=== PATIENT | male | born 1970 | race Caucasian/White ===

== ENCOUNTER 2016-07-04 00:39 | Inpatient (IN) | payer BC, OTHER ==
[~2016-07-04] VITALS: Ht 177.8 cm; Wt 105.7 kg
[2016-07-04] MEDS ORDERED: ONDANSETRON PF 4 MG/2 ML VIAL. ONE (01:07)
--- NOTE | 2016-07-04 01:21 | ED.ADGEN ---
Past Medical History Past Medical History: Diabetes-Type II, High Cholesterol, Hypertension Past Surgical History: Other Additional Past Surgical Histo: R. SHOULDER Alcohol Use: Occasionally Drug Use: None Adult General Chief Complaint Chief Complaint: DIZZY/LIGHT HEADED HPI HPI Patient is a 45 year old man, with history of hypertension, type 2 diabetes mellitus, who presents to the emergency department with complaint of dizziness, nausea, vomiting. Patient states that he awoke several hours ago, and when going to the bathroom felt lightheaded, felt hot, and sweaty, denies any focal weakness numbness or tingling, any vision changes, states he was having a headache "all over my head", no neck pain, denies any injuries, describes it as a lightheadedness more so than a vertiginous type feeling, although he is having difficulty clarifying, no syncope, patient then developed nausea and vomiting, denies any chest pain, states that he had some shortness of breath with this episode as well, and feels as though he "can't catch my breath". No similar symptoms previously. Patient states he has been compliant with his medications. Patient noted to be vomiting in the ED, food and fluid, no bile, no blood in emesis, denies any diarrhea. No fevers or chills, denies any sick contacts or exposures. No recent travel or surgery. Patient has not previously had an abdominal surgery. Patient denies any drugs or alcohol, admits to cigarette use daily. Review of Systems Review of Systems Constitutional: Denies fever or chills. [] Eyes: Denies change in visual acuity. [] HENT: Denies nasal congestion or sore throat. [] Respiratory: Denies cough, shortness of breath associated with diaphoresis, hot flushed feeling, nausea and vomiting, headache. Cardiovascular: Denies chest pain or edema. [] GI: Mild abdominal pain, nausea, vomiting, no bloody stools or diarrhea. : Denies dysuria. [] Musculoskeletal: Denies back pain or joint pain. [] Integument: Denies rash. [] Neurologic: Denies focal weakness or sensory changes. [] All over headache, lightheadedness, no vertiginous type symptoms. Endocrine: Denies polyuria or polydipsia. [] Lymphatic: Denies swollen glands. [] Psychiatric: Denies depression or anxiety. [] Current Medications Current Medications Current Medications Medications (Trade) Dose Ordered Sig/Alondra Start Time Stop Time Status Last Admin Dose Admin Ondansetron HCl (Zofran) 4 mg STK-MED ONCE 07/04/16 01:07 07/04/16 01:08 DC Ondansetron HCl 4 mg 4 mg 1X ONCE 07/04/16 01:30 07/04/16 01:31 DC 07/04/16 01:30 4 MG Sodium Chloride (Iv Sodium Chloride 0.9% 1000ml Bag) 1,000 ml @ 1,000 mls/hr 1X ONCE 07/04/16 01:30 07/04/16 02:29 DC 07/04/16 01:30 1,000 MLS/HR Allergies Allergies Allergies Coded Allergies Type Severity Reaction Last Updated Verified No Known Drug Allergies 07/04/16 No Physical Exam Physical Exam Constitutional: Well developed, well nourished, patient is mildly diaphoretic, noted to have just finished vomiting in the ED. [] HENT: Normocephalic, atraumatic, bilateral external ears normal, oropharynx moist, no oral exudates, nose normal. [] Eyes: PERRLA, EOMI, conjunctiva normal, no discharge. [] Neck: Normal range of motion, no tenderness, supple, no stridor. [] Cardiovascular:Heart rate regular rhythm, no murmur, S1, S2, rubs or gallops. [] Lungs & Thorax: Bilateral breath sounds clear to auscultation, no wheezing, rhonchi, rales. No chest wall tenderness or crepitus. [] Abdomen: Bowel sounds normal, soft, mild tenderness all patient in the epigastric and right upper quadrant region, no rebound, rigidity,, no masses, no pulsatile masses. [] Skin: Warm, dry, no erythema, no rash. [] Back: No tenderness, no CVA tenderness. [] Extremities: No tenderness, no cyanosis, no clubbing, ROM intact, no edema. [ Negative Homans sign.] Neurologic: Alert and oriented X 3, normal motor function, normal sensory function, no focal deficits noted. [] Psychologic: Affect normal, judgement normal, mood normal. [] Current Patient Data Vital Signs Vital Signs Date Time Temp Pulse Resp B/P Pulse Ox O2 Delivery O2 Flow Rate FiO2 07/04/16 01:00 97.4 82 20 157/98 98 Room Air 97.4 Lab Values Laboratory Tests Test 07/04/16 00:54 07/04/16 01:20 White Blood Count 6.0x10^3/uL (4.0-11.0) Red Blood Count 4.97x10^6/uL (4.30-5.70) Hemoglobin 14.4g/dL (13.0-17.5) Hematocrit 41.9% (39.0-53.0) Mean Corpuscular Volume 84fL (79-100) Mean Corpuscular Hemoglobin 29pg (25-35) Mean Corpuscular Hemoglobin Concent 35g/dL (31-37) Red Cell Distribution Width 13.3% (11.5-14.5) Platelet Count 306x10^3/uL (140-400) Neutrophils (%) (Auto) 52% (31-73) Lymphocytes (%) (Auto) 35% (24-48) Monocytes (%) (Auto) 11% (0-9) H Eosinophils (%) (Auto) 1% (0-3) Basophils (%) (Auto) 1% (0-3) Neutrophils # (Auto) 3.1x10^3uL (1.8-7.7) Lymphocytes # (Auto) 2.1x10^3/uL (1.0-4.8) Monocytes # (Auto) 0.7x10^3/uL (0.0-1.1) Eosinophils # (Auto) 0.1x10^3/uL (0.0-0.7) Basophils # (Auto) 0.0x10^3/uL (0.0-0.2) Prothrombin Time 12.1SEC (11.7-14.0) Prothrombin Time INR 1.0 (0.8-1.1) PTT 24SEC (24-38) Sodium Level 137mmol/L (136-145) Potassium Level 4.1mmol/L (3.5-5.1) Chloride Level 100mmol/L (98-107) Carbon Dioxide Level 26mmol/L (21-32) Anion Gap 11 (6-14) Blood Urea Nitrogen 12mg/dL (8-26) Creatinine 0.7mg/dL (0.7-1.3) Estimated GFR (Cockcroft-Gault) 122.0 BUN/Creatinine Ratio 17 (6-20) Glucose Level 356mg/dL (70-99) H Calcium Level 9.7mg/dL (8.5-10.1) Total Bilirubin 0.3mg/dL (0.2-1.0) Aspartate Amino Transferase (AST) 17U/L (15-37) Alanine Aminotransferase (ALT) 38U/L (16-63) Alkaline Phosphatase 138U/L (46-116) H Troponin I Quantitative < 0.017ng/mL (0.000-0.055) EW-Zju-I-Type Natriuretic Peptide 10pg/mL (0-124) Total Protein 7.3g/dL (6.4-8.2) Albumin 3.8g/dL (3.4-5.0) Albumin/Globulin Ratio 1.1 (1.0-1.7) Lipase 184U/L (73-393) Urine Collection Type Unknown Urine Color Yellow Urine Clarity Clear Urine pH 8.0 Urine Specific Jewell 1.025 Urine Protein Negativemg/dL (NEG-TRACE) Urine Glucose (UA) >=1000mg/dL (NEG) Urine Ketones (Stick) Negativemg/dL (NEG) Urine Blood Negative (NEG) Urine Nitrite Negative (NEG) Urine Bilirubin Negative (NEG) Urine Urobilinogen Dipstick 0.2mg/dL (0.2 mg/dL) Urine Leukocyte Esterase Negative (NEG) Urine RBC Occ/HPF (0-2) Urine WBC Occ/HPF (0-4) Urine Squamous Epithelial Cells Occ/LPF Urine Bacteria 0/HPF (0-FEW) Urine Opiates Screen Neg (NEG) Urine Methadone Screen Neg (NEG) Urine Barbiturates Neg (NEG) Urine Phencyclidine Screen Neg (NEG) Urine Amphetamine/Methamphetamine Neg (NEG) Urine Benzodiazepines Screen Neg (NEG) Urine Cocaine Screen Neg (NEG) Urine Cannabinoids Screen Neg (NEG) Urine Ethyl Alcohol Neg (NEG) Laboratory Tests 07/04/16 00:54 Laboratory Tests 07/04/16 00:54 EKG EKG EC: Sinus rhythm, heart rate 80 bpm, upright axis, QTC of 428, MS 1:30, QRS of 88, incomplete right bundle branch block noted, abnormal ECG, does not meet STEMI criteria. As interpreted by me. EC: Sinus rhythm, heart rate 75 beats minute, upright axis, QTC of 463, MS 136, QRS of 100, incomplete right bundle-branch block noted, no other abnormalities identified, with compared to previous ECG, no significant changes identified. Radiology/Procedures Radiology/Procedures [] [id number] [place] [address] IMAGING REPORT Signed PATIENT: ALEX SOTO ACCOUNT: [id number] : 1970 LOCATION: ER AGE: 45 SEX: M EXAM STATUS: REG ER ORD. PHYSICIAN: LUZ MARSHALL DO REASON: Dizziness/N/V PROCEDURE: HEAD WO CONTRAST Examination: CT head without contrast. HISTORY History of dizziness. COMPARISON None available Exposure: One or more of the following dose reduction technique were utilized for this examination: 1. Automated exposure control. 2.Adjustment of MA and /or KV according to patient size. 3. Use of iterative reconstruction technique. FINDINGS There is no evidence of midline shift. There is no acute intracranial bleed or extra-axial fluid collection identified. The akhtar-white matter differentiation is maintained. The visualized lateral ventricles, 3rd ventricle, 4th ventricle appropriate for age. The basal cisterns are not effaced. The mastoid air cells are clear. There is mild mucosal thickening identified in the bilateral maxillary sinus and the ethmoidal sinus likely due to sinus disease. IMPRESSION No acute intracranial findings. Electronically signed by: Barry Fonseca (Jul 04, 2016 02:01:23) DICTATED and SIGNED BY: BARRY FONSECA MD DATE: 07/04/16200 CC: UMESH JANSEN MD; LUZ MARSHALL DO ~ Impressions: [id number] [place] [address] IMAGING REPORT Signed PATIENT: ALEX SOTO ACCOUNT: [id number] : 1970 LOCATION: ER AGE: 45 SEX: M EXAM STATUS: REG ER ORD. PHYSICIAN: LUZ MARSHALL DO REASON: RUQ pain/N/V PROCEDURE: ABDOMEN LTD Examination: Ultrasound abdomen limited. HISTORY History of right upper quadrant pain, nausea, vomiting COMPARISON None FINDINGS The pancreas is not well visualized due to bowel gas. There is increased echogenicity noted within of the liver likely hepatic steatosis. Hepatomegaly identified with the right lobe of the liver measuring 24.0 centimeters. There is a 2.3 millimeter echogenicity identified abutting the wall of the gallbladder likely a polyp. The gallbladder wall thickness measures 1.5 millimeters. The common bile duct measures 3.4 millimeters in transverse dimension. The right kidney measures 14.3 centimeters in length. IMPRESSION 1. Small nonmobile echogenicity identified in the gallbladder measuring 2.3 millimeter probably a polyp. 2. Hepatomegaly with increased echogenicity noted throughout the liver likely hepatic steatosis. Electronically signed by: Barry Fonseca (Jul 04, 2016 02:25:00) DICTATED and SIGNED BY: BARRY FONSECA MD DATE: 07/04/16223 CC: UMESH JANSEN MD; LUZ MARSHALL DO ~ Course & Med Decision Making Course & Med Decision Making Pertinent Labs and Imaging studies reviewed. (See chart for details) Patient's neurologic examination is nonfocal, although patient is complaining of significant dizziness, nystagmus, it does appear the symptoms are more lightheaded nature than truly vertiginous, but are associated with nausea and vomiting. Due to patient's complaints, history of poorly controlled diabetes and hypertension, CT of the head obtained to rule out any occult cause of his symptoms, CT of the head is unremarkable. Patient with epigastric and right upper quadrant abdominal pain as well, ultrasound of the required obtained, not reveal any evidence of acute cholecystitis, mild elevation of AST noted, patient also noted be hyperglycemic, without any evidence of acidosis. On reevaluation after receiving Valium, patient is still complaining of significant dizziness, nausea is improved, has had no further vomiting at this point, but feels very dizzy every time he attempts to move. Again no focal findings were identified. I did discuss findings as above with Dr. Jansen, the patient's primary care provider, states the patient is a poorly compliant diabetic, patient accepted to his service as a full admission to the medical telemetry floor, bridge orders placed at his request for continued symptom management, insulin administration via protocol, and consultation with neurology. Patient was agreeable to this plan as well, patient admitted to the floor in sinus rhythm without, location. Sanjuanita Disclaimer Dragon Disclaimer This electronic medical record was generated, in whole or in part, using a voice recognition dictation system. Departure Impression: Primary Impression: Dizziness Additional Impressions: Nausea and vomiting Hyperglycemia due to type 2 diabetes mellitus Disposition: ADMITTED INPATIENT Admitting Physician: Umesh Jansen Condition: IMPROVED Problem Qualifiers Additional Impressions: Nausea and vomiting Vomiting type: unspecified Vomiting Intractability: non-intractable Qualified Code: R11.2 - Nausea with vomiting, unspecified Hyperglycemia due to type 2 diabetes mellitus Diabetes mellitus detention insulin use: unspecified detention insulin use status Qualified Code: E11.65 - Type 2 diabetes mellitus with hyperglycemia LUZ MARSHALL DO Jul 04, 2016 01:20
[2016-07-04 01:23] LABS: BASO % 1 % (0-3); EOS % 1 % (0-3); HEMATOCRIT 41.9 % (39.0-53.0); HEMOGLOBIN 14.4 g/dL (13.0-17.5); LYMPH # 2.1 x10^3/uL (1.0-4.8); LYMPH % 35 % (24-48); MEAN CORPUSCULAR HEMOGLOBIN 29 pg (25-35); MEAN CORPUSCULAR HGB CONC 35 g/dL (31-37); MEAN CORPUSCULAR VOLUME 84 fL (79-100); MONO % 11 % (0-9); NEUT % 52 % (31-73); PLATELET COUNT 306 x10^3/uL (140-400); RED BLOOD COUNT 4.97 x10^6/uL (4.30-5.70); RED CELL DISTRIBUTION WIDTH 13.3 % (11.5-14.5)
[2016-07-04 01:27] LABS: BILIRUBIN,URINE NEGATIVE (NEG); GLUCOSE,URINE >=1000 mg/dL (NEG); NITRITE,URINE NEGATIVE (NEG); PROTEIN,URINE NEGATIVE (NEG-TRACE); UROBILINOGEN,URINE 0.2 mg/dL (0.2 mg/dL)
[2016-07-04] MEDS ORDERED: IV NORMAL SALINE 1000ML BAG 1,000 ML IV ONE (01:30)
[2016-07-04] MEDS ORDERED: ONDANSETRON PF 4 MG/2 ML VIAL. IV ONE ×2 (01:30→03:45)
[2016-07-04 01:32] LABS: BARBITURATES NEG (NEG); BENZODIAZEPINES NEG (NEG); CANNABINOIDS NEG (NEG); COCAINE NEG (NEG); METHADONE NEG (NEG); OPIATES NEG (NEG); PHENCYCLIDINE NEG (NEG)
[2016-07-04 01:34] LABS: ETHANOL, URINE NEG (NEG)
[2016-07-04 01:37] LABS: CALCIUM 9.7 mg/dL (8.5-10.1); CREATININE 0.7 mg/dL (0.7-1.3); POTASSIUM 4.1 mmol/L (3.5-5.1); PROTHROMBIN TIME PATIENT 12.1 SEC (11.7-14.0)
[2016-07-04 01:42] LABS: ALBUMIN 3.8 g/dL (3.4-5.0); ALBUMIN/GLOBULIN RATIO 1.1 (1.0-1.7); TOTAL BILIRUBIN 0.3 mg/dL (0.2-1.0); TOTAL PROTEIN 7.3 g/dL (6.4-8.2)
[2016-07-04 01:42] LABS: BACTERIA,URINE 0 /HPF (0-FEW); RBC,URINE OCC /HPF (0-2); WBC,URINE OCC /HPF (0-4)
[2016-07-04 01:43] LABS: SQUAMOUS EPITHELIAL CELL,UR OCC /LPF
--- NOTE | 2016-07-04 02:04 | RAD ---
Examination: CT head without contrast. HISTORY History of dizziness. COMPARISON None available Exposure: One or more of the following dose reduction technique were utilized for this examination: 1. Automated exposure control. 2.Adjustment of MA and /or KV according to patient size. 3. Use of iterative reconstruction technique. FINDINGS There is no evidence of midline shift. There is no acute intracranial bleed or extra-axial fluid collection identified. The akhtar-white matter differentiation is maintained. The visualized lateral ventricles, 3rd ventricle, 4th ventricle appropriate for age. The basal cisterns are not effaced. The mastoid air cells are clear. There is mild mucosal thickening identified in the bilateral maxillary sinus and the ethmoidal sinus likely due to sinus disease. IMPRESSION No acute intracranial findings. Electronically signed by: Barry Fonseca (Jul 04, 2016 02:01:23)
--- NOTE | 2016-07-04 02:26 | RAD ---
Examination: Ultrasound abdomen limited. HISTORY History of right upper quadrant pain, nausea, vomiting COMPARISON None FINDINGS The pancreas is not well visualized due to bowel gas. There is increased echogenicity noted within of the liver likely hepatic steatosis. Hepatomegaly identified with the right lobe of the liver measuring 24.0 centimeters. There is a 2.3 millimeter echogenicity identified abutting the wall of the gallbladder likely a polyp. The gallbladder wall thickness measures 1.5 millimeters. The common bile duct measures 3.4 millimeters in transverse dimension. The right kidney measures 14.3 centimeters in length. IMPRESSION 1. Small nonmobile echogenicity identified in the gallbladder measuring 2.3 millimeter probably a polyp. 2. Hepatomegaly with increased echogenicity noted throughout the liver likely hepatic steatosis. Electronically signed by: Barry Fonseca (Jul 04, 2016 02:25:00)
[2016-07-04] MEDS ORDERED: DIAZEPAM 10 MG/2 ML DISP.SYRIN. IV ONE (03:15)
[2016-07-04] MEDS ORDERED: ACETAMINOPHEN 325 MG TABLET. PO PRN (04:15)
[2016-07-04] MEDS ORDERED: DEXTROSE 50% 25 GM / 50ML DISP.SYRIN. IV PRN (04:15)
[2016-07-04] MEDS ORDERED: ONDANSETRON PF 4 MG/2 ML VIAL. IV PRN (04:15)
[2016-07-04] MEDS ORDERED: LISI1TAB3 PO (04:56)
[2016-07-04] MEDS ORDERED: METF10002 PO (04:56)
[2016-07-04] MEDS ORDERED: HYDR-2672 PO (04:56)
[2016-07-04] MEDS ORDERED: OMEG500C3 PO (04:56)
[2016-07-04] MEDS ORDERED: MULT-245 PO (04:56)
[2016-07-04] MEDS: IV NORMAL SALINE 1000ML BAG 1,000 ML IV SCH ×3 (05:08→23:50)
[2016-07-04] MEDS ORDERED: SIMV20TA3 PO (05:14)
[2016-07-04] MEDS ORDERED: LISI-374 PO (05:14)
[2016-07-04] MEDS ORDERED: GLIM4TAB2 PO (05:14)
[2016-07-04 05:25] VITALS: BP 130/75
--- NOTE | 2016-07-04 06:34 | EKG ---
[facility] [address] [place] [address] Test Date: 2016-07-04 Test Time: 00:42:38 Pat Name: ALEX SOTO Department: Room: 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
--- NOTE | 2016-07-04 06:37 | EKG ---
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
[2016-07-04 07:15] VITALS: BP 142/94
--- NOTE | 2016-07-04 07:33 | RAD ---
Indication: Nausea and vomiting and abdominal pain. Time of exam 0136 hours. The heart size is normal. Lungs are clear. No free air is detected. The bowel gas pattern appears nonobstructed. No pathologic calcifications are seen. Impression: No acute feature.
[2016-07-04] MEDS: INSULIN ASPART 300 UNITS/3 ML INSULN.PEN SQ SCH ×3 (08:00→18:14)
[2016-07-04 08:05] VITALS: BP 142/94
--- NOTE | 2016-07-04 09:23 | PDOC ---
Provider Note Provider Note [id number] UMESH JANSEN MD Jul 04, 2016 09:23
[2016-07-04] MEDS ORDERED: METFORMIN 1,000 MG TABLET PO SCH (09:30)
[2016-07-04] MEDS: MECLIZINE HCL 12.5 MG TABLET. PO PRN (09:37)
[2016-07-04] MEDS: METFORMIN 500 MG TABLET. PO SCH ×2 (09:38→18:01)
[2016-07-04] MEDS: LISINOPRIL 10 MG TABLET PO SCH (09:41)
[2016-07-04 10:57] VITALS: BP 140/73
[2016-07-04] MEDS ORDERED: ASPIRIN 81 MG TAB.CHEW PO SCH (12:00)
[2016-07-04] MEDS: DIAZEPAM 5 MG TABLET PO PRN ×2 (12:26→20:57)
[2016-07-04] MEDS ORDERED: PROCHLORPERAZINE 5 MG TABLET. PO PRN (12:45)
--- NOTE | 2016-07-04 14:27 | PDOC2 ---
NEUROLOGY CONSULT Date of Admission Date of Admission DATE: 07/04/16 TIME: 14:11 Reason for Consult Reason for Consult: IMPRESSION: Worsening of recurrent dizziness and light headedness. Vertigo, periodic. Syncope? Worsening of chronic headache. HTN, BP 184/102 mmHg HLD DM Hyperglycemia, glucose 356 SOB Smoking Drinking Obesity RECOMMENDATIONS/PLAN: Meclizine 25 mg tid or qid. Brain MRI w/wo contrast. Pain control. Ortho HR and BP Lab: see orders. OT/PT HISTORY OF THE PRESENT ILLNESS: 45-y-old male patient with Hx of chronic periodic symptoms of dizziness, light headedness, vertigo, headaches for about 2 years, but he has recurrent similar symptoms this time and his symptoms are worse with vomiting, nausea and unable to mobile since 07/03/16. He also had perspiration on 07/03. His BP and glucose level also elevated. PAST MEDICAL HISTORY: Please see above. PAST SURGERY HISTORY: Pacemaker Placement, S/P CABG, Tonsillectomy, Appendectomy , Cholecystectomy, Hysterectomy, Hernia Repair, Neck, Shoulder, Knee surgery, No major surgery recently. ALLERGY: Unknown MEDICATIONS: Refer to [facility] FAMILY HISTORY: Non contributory. SOCIAL HISTORY: Lives with his and home. Denies illicit drug use. He smokes for many years. He drinks 4-5 beers several times a week or free drinking for weeks sometimes per his . REVIEW OF SYSTEMS: Constitutional: No malnutrition, weight loss, cachexia. Head: No traumatic brain or head injury. Skin: No edema, or rash. Ear: No infection, tinnitus. Eyes: No vision loss or color blindness. Nose: No bleeding or purulent discharges. Hearing: No hearing decrease. Neck: No injury. Cardiac: HTN, HLD. Pulmonary: No COPD. GI: No GI ulcer, GI bleeding. Urinary/genital: No dysuria, hematuria, incontinence, urinary retention. Endocrinologic: Diabetes Mellitus, obesity. Skeletomuscular: No muscular atrophy, deformity. Neurological: see HP. Psychiatric: Denies drug use/abuse. Otherwise, not -igglp review of systems. PHYSICAL EXAMINATION: General appearance is in acute distress. HEENT: Normocephalic and nontraumatic. Eyes, nose, ears, and throat are unremarkable. Neck is supple. No lymphadenopathy. No crepitus. Cardiovascular: S1, S2, regular rate and rhythm. Pulmonary: Clear to auscultation bilaterally. Abdomen: Bowel sounds are positive. . Extremities: No rash, lesions, or edema. No restriction of range of motion NEUROLOGICAL EXAMINATION: Alert Oriented to time, place and person. PERRL. EOMI. CN: no focal findings. Muscle tone: within normal. Muscle strength: 5 DTR: 2 Plantar reflex: Flexor response bilaterally Gait: not examined in bed. Sensory exam: no abnormal findings. No obvious cerebellar signs elicited. F-T-N test not performed. Current Medications Current Medications Current Medications Ondansetron HCl (Zofran) 4 mg STK-MED ONCE .ROUTE ; Start 07/04/16 at 01:07; Stop 07/04/16 at 01:08; Status DC Ondansetron HCl 4 mg 4 mg 1X ONCE IV Last administered on 07/04/16 01:30; Start 07/04/16 at 01:30; Stop 07/04/16 at 01:31; Status DC Sodium Chloride (Iv Sodium Chloride 0.9% 1000ml Bag) 1,000 ml @ 1,000 mls/hr 1X ONCE IV Last administered on 07/04/16 01:30; Start 07/04/16 at 01:30; Stop 07/04/16 at 02:29; Status DC Diazepam (Valium) 5 mg 1X ONCE IV Last administered on 07/04/16 03:18; Start 07/04/16 at 03:15; Stop 07/04/16 at 03:16; Status DC Ondansetron HCl (Zofran) 4 mg 1X ONCE IV Last administered on 07/04/16 03:37 ; Start 07/04/16 at 03:45; Stop 07/04/16 at 03:46; Status DC Ondansetron HCl 4 mg 4 mg PRN Q8HRS PRN IV NAUSEA/VOMITING Last administered on 07/04/16 08:11; Start 07/04/16 at 04:15; Stop 07/04/16 at 12:45; Status DC Sodium Chloride (Iv Sodium Chloride 0.9% 1000ml Bag) 1,000 ml @ 125 mls/hr Q8H IV Last administered on 07/04/16 05:08; Start 07/04/16 at 04:15; Stop at 04:14 Acetaminophen (Tylenol) 650 mg PRN Q4HRS PRN PO FEVER; Start 07/04/16 at 04:15 ; Stop 07/05/16 at 04:14 Insulin Aspart (Novolog) 0-5 UNITS TIDWMEALS SQ Last administered on 07/04/16 12:31; Start 07/04/16 at 08:00 Dextrose 12.5 gm PRN Q15MIN PRN IV SEE COMMENTS; Start 07/04/16 at 04:15 Metformin HCl (Glucophage) 500 mg BID PO ; Start 07/04/16 at 09:30; Status Cancel Glimepiride (Amaryl) 4 mg DAILY PO ; Start 07/05/16 at 09:00 Metformin HCl (Glucophage) 500 mg BIDWMEALS PO Last administered on 07/04/16 09:38; Start 07/04/16 at 09:15 Lisinopril (Prinivil) 10 mg DAILY PO Last administered on 07/04/16 09:41; Start 07/04/16 at 09:30 Meclizine HCl (Antivert) 25 mg PRN Q6HRS PRN PO DIZZINESS Last administered on 07/04/16 09:37; Start 07/04/16 at 09:15 Diazepam (Valium) 5 mg PRN Q8HRS PRN PO ANXIETY Last administered on 07/04/16 12:26; Start 07/04/16 at 09:15 Aspirin (Children'S Aspirin) 81 mg DAILYWBKFT PO Last administered on 12:00; Start 07/04/16 at 12:00 Prochlorperazine Maleate (Compazine) 5 mg PRN Q6HRS PRN PO NAUSEA/VOMITING ( 2nd Choice); Start 07/04/16 at 12:45 Ondansetron HCl (Zofran) 4 mg PRN Q6HRS PRN IV NAUSEA/VOMITING 1st choice; Start 07/04/16 at 12:45 Active Scripts Active Reported Glimepiride 4 Mg Tablet 1 Tab PO DAILY Simvastatin 20 Mg Tablet 20 Mg PO DAILY Zestoretic 20-12.5 Mg Tablet (Lisinopril/Hydrochlorothiazide) 1 Each Tablet 1 Tab PO DAILY Hydrocodone-Apap 10-325 (Hydrocodone Bit/Acetaminophen) 1 Each Tablet 1 Tab PO TID PRN Multi Vitamin Daily (Multivitamin) 1 Each Tablet 1 Each PO DAILY Fish Oil ([place]-3 Fatty Acids) 500 Mg Capsule 500 Mg PO DAILY Metformin Hcl 1,000 Mg Tablet 1 Tab PO BID Allergies Allergies: Coded Allergies: No Known Drug Allergies (Unverified , 07/04/16) Vitals VITALS Vital Signs Date Time Temp Pulse Resp B/P Pulse Ox O2 Delivery O2 Flow Rate FiO2 07/04/16 10:57 98.1 88 16 140/73 97 Room Air 98.1 Labs Labs Laboratory Tests Test 07/04/16 00:54 07/04/16 01:20 07/04/16 07:37 07/04/16 09:50 White Blood Count 6.0x10^3/uL (4.0-11.0) Red Blood Count 4.97x10^6/uL (4.30-5.70) Hemoglobin 14.4g/dL (13.0-17.5) Hematocrit 41.9% (39.0-53.0) Mean Corpuscular Volume 84fL (79-100) Mean Corpuscular Hemoglobin 29pg (25-35) Mean Corpuscular Hemoglobin Concent 35g/dL (31-37) Red Cell Distribution Width 13.3% (11.5-14.5) Platelet Count 306x10^3/uL (140-400) Neutrophils (%) (Auto) 52% (31-73) Lymphocytes (%) (Auto) 35% (24-48) Monocytes (%) (Auto) 11% (0-9) Eosinophils (%) (Auto) 1% (0-3) Basophils (%) (Auto) 1% (0-3) Neutrophils # (Auto) 3.1x10^3uL (1.8-7.7) Lymphocytes # (Auto) 2.1x10^3/uL (1.0-4.8) Monocytes # (Auto) 0.7x10^3/uL (0.0-1.1) Eosinophils # (Auto) 0.1x10^3/uL (0.0-0.7) Basophils # (Auto) 0.0x10^3/uL (0.0-0.2) Prothrombin Time 12.1SEC (11.7-14.0) Prothromb Time International Ratio 1.0 (0.8-1.1) Activated Partial Thromboplast Time 24SEC (24-38) Sodium Level 137mmol/L (136-145) Potassium Level 4.1mmol/L (3.5-5.1) Chloride Level 100mmol/L (98-107) Carbon Dioxide Level 26mmol/L (21-32) Anion Gap 11 (6-14) Blood Urea Nitrogen 12mg/dL (8-26) Creatinine 0.7mg/dL (0.7-1.3) Estimated GFR (Cockcroft-Gault) 122.0 BUN/Creatinine Ratio 17 (6-20) Glucose Level 356mg/dL (70-99) Calcium Level 9.7mg/dL (8.5-10.1) Total Bilirubin 0.3mg/dL (0.2-1.0) Aspartate Amino Transf (AST/SGOT) 17U/L (15-37) Alanine Aminotransferase (ALT/SGPT) 38U/L (16-63) Alkaline Phosphatase 138U/L (46-116) Troponin I Quantitative < 0.017ng/mL (0.000-0.055) < 0.017ng/mL (0.000-0.055) SS-Yzv-W-Type Natriuretic Peptide 10pg/mL (0-124) Total Protein 7.3g/dL (6.4-8.2) Albumin 3.8g/dL (3.4-5.0) Albumin/Globulin Ratio 1.1 (1.0-1.7) Lipase 184U/L (73-393) Urine Collection Type Unknown Urine Color Yellow Urine Clarity Clear Urine pH 8.0 Urine Specific Sims 1.025 Urine Protein Negativemg/dL (NEG-TRACE) Urine Glucose (UA) >=1000mg/dL (NEG) Urine Ketones (Stick) Negativemg/dL (NEG) Urine Blood Negative (NEG) Urine Nitrite Negative (NEG) Urine Bilirubin Negative (NEG) Urine Urobilinogen Dipstick 0.2mg/dL (0.2 mg/dL) Urine Leukocyte Esterase Negative (NEG) Urine RBC Occ/HPF (0-2) Urine WBC Occ/HPF (0-4) Urine Squamous Epithelial Cells Occ/LPF Urine Bacteria 0/HPF (0-FEW) Urine Opiates Screen Neg (NEG) Urine Methadone Screen Neg (NEG) Urine Barbiturates Neg (NEG) Urine Phencyclidine Screen Neg (NEG) Urine Amphetamine/Methamphetamine Neg (NEG) Urine Benzodiazepines Screen Neg (NEG) Urine Cocaine Screen Neg (NEG) Urine Cannabinoids Screen Neg (NEG) Urine Ethyl Alcohol Neg (NEG) Glucose (Fingerstick) 295mg/dL (70-99) Test 07/04/16 11:44 Glucose (Fingerstick) 246mg/dL (70-99) Laboratory Tests Test 07/04/16 00:54 07/04/16 01:20 07/04/16 07:37 07/04/16 09:50 White Blood Count 6.0x10^3/uL (4.0-11.0) Red Blood Count 4.97x10^6/uL (4.30-5.70) Hemoglobin 14.4g/dL (13.0-17.5) Hematocrit 41.9% (39.0-53.0) Mean Corpuscular Volume 84fL (79-100) Mean Corpuscular Hemoglobin 29pg (25-35) Mean Corpuscular Hemoglobin Concent 35g/dL (31-37) Red Cell Distribution Width 13.3% (11.5-14.5) Platelet Count 306x10^3/uL (140-400) Neutrophils (%) (Auto) 52% (31-73) Lymphocytes (%) (Auto) 35% (24-48) Monocytes (%) (Auto) 11% (0-9) Eosinophils (%) (Auto) 1% (0-3) Basophils (%) (Auto) 1% (0-3) Neutrophils # (Auto) 3.1x10^3uL (1.8-7.7) Lymphocytes # (Auto) 2.1x10^3/uL (1.0-4.8) Monocytes # (Auto) 0.7x10^3/uL (0.0-1.1) Eosinophils # (Auto) 0.1x10^3/uL (0.0-0.7) Basophils # (Auto) 0.0x10^3/uL (0.0-0.2) Prothrombin Time 12.1SEC (11.7-14.0) Prothromb Time International Ratio 1.0 (0.8-1.1) Activated Partial Thromboplast Time 24SEC (24-38) Sodium Level 137mmol/L (136-145) Potassium Level 4.1mmol/L (3.5-5.1) Chloride Level 100mmol/L (98-107) Carbon Dioxide Level 26mmol/L (21-32) Anion Gap 11 (6-14) Blood Urea Nitrogen 12mg/dL (8-26) Creatinine 0.7mg/dL (0.7-1.3) Estimated GFR (Cockcroft-Gault) 122.0 BUN/Creatinine Ratio 17 (6-20) Glucose Level 356mg/dL (70-99) Calcium Level 9.7mg/dL (8.5-10.1) Total Bilirubin 0.3mg/dL (0.2-1.0) Aspartate Amino Transf (AST/SGOT) 17U/L (15-37) Alanine Aminotransferase (ALT/SGPT) 38U/L (16-63) Alkaline Phosphatase 138U/L (46-116) Troponin I Quantitative < 0.017ng/mL (0.000-0.055) < 0.017ng/mL (0.000-0.055) OR-Vkp-A-Type Natriuretic Peptide 10pg/mL (0-124) Total Protein 7.3g/dL (6.4-8.2) Albumin 3.8g/dL (3.4-5.0) Albumin/Globulin Ratio 1.1 (1.0-1.7) Lipase 184U/L (73-393) Urine Collection Type Unknown Urine Color Yellow Urine Clarity Clear Urine pH 8.0 Urine Specific Sims 1.025 Urine Protein Negativemg/dL (NEG-TRACE) Urine Glucose (UA) >=1000mg/dL (NEG) Urine Ketones (Stick) Negativemg/dL (NEG) Urine Blood Negative (NEG) Urine Nitrite Negative (NEG) Urine Bilirubin Negative (NEG) Urine Urobilinogen Dipstick 0.2mg/dL (0.2 mg/dL) Urine Leukocyte Esterase Negative (NEG) Urine RBC Occ/HPF (0-2) Urine WBC Occ/HPF (0-4) Urine Squamous Epithelial Cells Occ/LPF Urine Bacteria 0/HPF (0-FEW) Urine Opiates Screen Neg (NEG) Urine Methadone Screen Neg (NEG) Urine Barbiturates Neg (NEG) Urine Phencyclidine Screen Neg (NEG) Urine Amphetamine/Methamphetamine Neg (NEG) Urine Benzodiazepines Screen Neg (NEG) Urine Cocaine Screen Neg (NEG) Urine Cannabinoids Screen Neg (NEG) Urine Ethyl Alcohol Neg (NEG) Glucose (Fingerstick) 295mg/dL (70-99) Test 07/04/16 11:44 Glucose (Fingerstick) 246mg/dL (70-99) PAUL READ MD Jul 04, 2016 14:27
[2016-07-04] MEDS: ONDANSETRON PF 4 MG/2 ML VIAL. IV PRN (14:37)
[2016-07-04] MEDS ORDERED: GADOBUTROL 10 MMOL/10 ML VIAL IV ONE (15:00)
--- NOTE | 2016-07-04 15:52 | RAD ---
PROCEDURE MRI brain with and without contrast. HISTORY Extreme headache and mental status change. Vomiting and dizziness. TECHNIQUE Sagittal T1, axial T1, axial T2, axial FLAIR, axial T2 gradient, diffusion imaging with ADC map, post-contrast axial, and post-contrast coronal sequences are provided. The patient received 9 milliliters of intravenous Gadavist. COMPARISON CT head from earlier today. FINDINGS 23 x 13 millimeter focus of restricted diffusion with ADC correlate is noted in the inferior right cerebellum medially. Three additional oval-shaped foci of restricted diffusion with ADC correlate in the inferior right cerebellar hemisphere are noted as well measuring up to 7 millimeters. There is no hemorrhagic transformation. The ventricles are normal in size and configuration. A few scattered FLAIR hyperintensities in the supratentorial white matter are nonspecific but most suggestive of minimal small vessel ischemic disease. There is no acute intracranial hemorrhage or extra-axial fluid collection. There is no mass effect or midline shift. The intracranial flow voids are preserved. The sagittal midline structures are unremarkable. There is pansinus mucosal thickening, mild, greatest in the maxillary sinuses. There is no pathologic enhancement. This critical report was called to the patient's nurse, Janice, at 1547 hours. IMPRESSION 1. 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 No evidence of hemorrhagic transformation. 2. Minimal probable small-vessel ischemic disease. Electronically signed by: Tigre Joshua MD (Jul 04, 2016 15:51:51)
[2016-07-04] MEDS: ASPIRIN 325 MG TABLET PO SCH (16:32)
--- NOTE | 2016-07-04 16:48 | HP ---
ADMIT DATE: 07/04/2016 CHIEF COMPLAINT: Dizziness and nausea. HISTORY OF PRESENT ILLNESS: A 45-year-old white male with known history of hypertension and diabetes, has not been treated over the last several months as he has ran out of his meds and he just cut back on meds 3 days ago. He has had some viral-like symptoms with dizziness, nausea and diarrhea and then last night developed severe positional type dizziness and more vomiting. CT scan in the ER was normal and he is still very nauseous and positionally uncomfortable. He has had no headache, trauma or any symptoms of other neurologic symptoms. PAST MEDICAL: MEDICATIONS: In the past have been Zocor, lisinopril, metformin and glimepiride. SURGERY: None. ALLERGIES: No allergies. No other serious known medical problems. SOCIAL HISTORY: Smoker, , employed, modest alcohol intake. FAMILY HISTORY: Unremarkable. REVIEW OF SYSTEMS: No other complaints. OBJECTIVE: ENT: Pupils round and reactive. Sclerae clear. TMs and pharynx normal. No nystagmus is seen. NECK: Revealed no carotid bruits, nodes or masses. CARDIOVASCULAR: Regular rate. No irregular beat or murmur. ABDOMEN: Soft, benign and nontender. EXTREMITIES: Good pedal and radial pulses. NEUROLOGIC: Moves all extremities. No tremor is noted. Piveuf-ln-kmpy is normal. Gait not tested due to vertigo. Cranial nerves 2-12 appear to be intact. Raghav-Hallpike maneuver is not done because of positional vertigo. ASSESSMENT: 1. Severe vertiginous like dizziness, suspect more inner ear dysfunction as a viral prodrome. He does have risks of cerebrovascular accident given untreated diabetes and hypertension. 2. Untreated diabetes and hypertension. 3. History of hyperlipidemia. PLAN: We will add aspirin and meclizine at this point. Neurologic consultation and supportive care and resumption of diabetic meds. UMESH JANSEN MD DR: SHUKRI/teresa JOB#: [id number] / [id number]
[2016-07-04] MEDS ORDERED: LORAZEPAM 2 MG/ML VIAL IV PRN (17:45)
[2016-07-04] MEDS: FENTANYL PF 100 MCG/2 ML VIAL. IV PRN (18:00)
[2016-07-04 19:00] VITALS: BP 139/74
[2016-07-04 23:00] VITALS: BP 124/58
[2016-07-05] VITALS (7 sets, daily range): BP systolic 119–166; BP diastolic 75–95
[2016-07-05] MEDS: FENTANYL PF 100 MCG/2 ML VIAL. IV PRN ×2 (00:41→06:15)
[2016-07-05] MEDS: DIAZEPAM 5 MG TABLET PO PRN ×3 (05:36→21:36)
[2016-07-05 06:41] LABS: BASO % 0 % (0-3); EOS % 0 % (0-3); HEMATOCRIT 38.6 % (39.0-53.0); LYMPH # 1.8 x10^3/uL (1.0-4.8); LYMPH % 18 % (24-48); MEAN CORPUSCULAR HEMOGLOBIN 29 pg (25-35); MEAN CORPUSCULAR HGB CONC 34 g/dL (31-37); MEAN CORPUSCULAR VOLUME 86 fL (79-100); MONO % 8 % (0-9); NEUT % 74 % (31-73); PLATELET COUNT 283 x10^3/uL (140-400); RED BLOOD COUNT 4.49 x10^6/uL (4.30-5.70); RED CELL DISTRIBUTION WIDTH 13.9 % (11.5-14.5)
[2016-07-05 06:55] LABS: CALCIUM 8.8 mg/dL (8.5-10.1); CREATININE 0.6 mg/dL (0.7-1.3); GFR 145.7; POTASSIUM 3.4 mmol/L (3.5-5.1)
[2016-07-05 07:10] LABS: CHOLESTEROL/HDL RATIO 3.6
--- NOTE | 2016-07-05 07:25 | RAD ---
Indication: CVA. Grayscale, color-flow and duplex Doppler evaluation of both carotid systems was performed. No significant plaque is identified in either carotid system. The velocities are normal bilaterally. Peak velocity right CCA 72 cm/s left CCA 86 cm/s. Peak velocity right ICA 82 cm/s left ICA 69 cm/s. Both vertebral arteries demonstrate antegrade flow. Impression: No evidence of a hemodynamically significant stenosis.
[2016-07-05] MEDS: GLIMEPIRIDE 2 MG TABLET PO SCH (08:18)
[2016-07-05] MEDS: ASPIRIN 325 MG TABLET PO SCH (08:19)
[2016-07-05] MEDS: LISINOPRIL 10 MG TABLET PO SCH (08:19)
[2016-07-05] MEDS: METFORMIN 1,000 MG TABLET PO SCH ×2 (08:23→18:02)
[2016-07-05] MEDS ORDERED: INSULIN DETEMIR 300 UNITS/3 ML INSULN.PEN. SQ SCH (08:30)
[2016-07-05] MEDS: INSULIN ASPART 300 UNITS/3 ML INSULN.PEN SQ SCH ×3 (08:31→17:00)
--- NOTE | 2016-07-05 08:57 | PDOC ---
Provider Note Provider Note c/o STEWART but less dizzy- no tremor, finger/nose test goog - glucose still up, will inc levemir, add statin, rehab consult re cerebellar cva, likely from dm UMESH JANSEN MD Jul 05, 2016 08:57
[2016-07-05] MEDS ORDERED: HYDROCODONE/APAP 10/325 TABLET. PO PRN (09:00)
[2016-07-05] MEDS: INSULIN DETEMIR 300 UNITS/3 ML INSULN.PEN. SQ SCH ×2 (09:36→16:30)
--- NOTE | 2016-07-05 14:44 | CARD ---
APPROVED REPORT EXAM: Two-dimensional and M-mode echocardiogram with Doppler and color Doppler. Other Information Quality : Good INDICATION CVA/TIA Dizziness and Vertigo Echo Enhancing Agent Agent/Amount Used: Agitated Saline 8mL 2D DIMENSIONS RVDd3.1 (2.9-3.5cm)Left Atrium(2D)4.2 (1.6-4.0cm) IVSd1.2 (0.7-1.1cm)Aortic Root(2D)3.5 (2.0-3.7cm) LVDd5.7 (3.9-5.9cm)LVOT Diameter2.1 (1.8-2.4cm) PWd1.1 (0.7-1.1cm)LVDs3.7 (2.5-4.0cm) FS (%) 34.6 %SV99.9 ml LVEF(%)63.0 (>50%) Aortic Valve AoV Peak Mark.137.3cm/sAoV VTI24.6cm AO Peak GR.7.5mmHgLVOT VTI 25.06cm AO Mean GR.4mmHgAVA (VTI)3.60cm2 Mitral Valve MV E Ygsmnjad344.6cm/sMV DECEL [id number] MV A Pvlvyvnk16.0cm/sE/A Ratio1.2 TDI Lateral E' P. V7.66cm/sMedial E' P. V9.14cm/s E/Lateral E'13.7E/Medial E'11.4 Tricuspid Valve TR P. Ucamhngi513dy/sRAP SFMUUYTT5wvDm TR Peak Gr.43eaCgDBZJ51hcDf Pulmonary Vein S1 Puxpupyh98.1cm/sS2 Uptetpdc65.00cm/s D2 Ztrrwztb07.0cm/s LEFT VENTRICLE The left ventricle is normal size. There is mild concentric left ventricular hypertrophy. The left ve ntricular systolic function is normal. The Ejection Fraction is 55-60%. There is normal LV segmental wall motion. Transmitral Doppler flow pattern is normal for age. RIGHT VENTRICLE The right ventricle is normal size. The right ventricular systolic function is normal. ATRIA The left atrium is mildly dilated. The right atrium size is normal. The interatrial septum is intact with no evidence for an atrial septal defect or patent foramen ovale as noted on 2-D or Doppler imagi ng. Injection of bubbles documented no interatrial shunt. AORTIC VALVE The aortic valve is calcified but opens well. Doppler and Color Flow revealed no significant aortic r egurgitation. There is no significant aortic valvular stenosis. MITRAL VALVE The mitral valve is calcified but opens well. There is no evidence of mitral valve prolapse. There is no mitral valve stenosis. Doppler and Color Flow revealed no mitral valve regurgitation noted. TRICUSPID VALVE The tricuspid valve is normal in structure and function. Doppler and Color Flow revealed trace tricus pid regurgitation. There is mild pulmonary hypertension. The PA pressure was estimated at 31 mmHg. Th ere is no tricuspid valve stenosis. PULMONIC VALVE The pulmonary valve is normal in structure and function. Doppler and Color Flow revealed no pulmonic valvular regurgitation. There is no pulmonic valvular stenosis. GREAT VESSELS The aortic root is mildly enlarged at 3.5 cm. The ascending aorta is mildly dilated at 3.4 cm. The IV C is normal in size and collapses >50% with inspiration. PERICARDIAL EFFUSION There is no evidence of significant pericardial effusion. Critical Notification Critical Value: No <Conclusion> The left ventricular systolic function is normal. The Ejection Fraction is 55-60%. There is normal LV segmental wall motion. The left atrium is mildly dilated. Doppler and Color Flow revealed trace tricuspid regurgitation. There is mild pulmonary hypertension. The PA pressure was estimated at 31 mmHg. There is no evidence of significant pericardial effusion. Injection of bubbles documented no interatrial shunt.
[2016-07-05] MEDS: HYDROCODONE/APAP 10/325 TABLET. PO PRN ×2 (15:35→21:36)
--- NOTE | 2016-07-05 15:41 | PDOC ---
PROGRESS NOTES Assessment Assessment Acute/subacute right cerebellar infarcts. Worsening of recurrent dizziness and vertigo. HTN, BP 184/102 mmHg HLD DM, Hyperglycemia, glucose 356 Smoking Drinking Obesity RECOMMENDATIONS/PLAN: Meclizine 25 mg tid or qid. Continue ASA 325 mg daily, started on 07/04/16. Continue Statin HS. See cardiology to help rule out embolic etiology of stroke. BP control Control hyperglycemia. Weight reduction. Smoking cessation. OT/PT FU with PCP. Discussed with him and his in detail at bedside on a daily basis. MRI, Carotid A US and Echo refer to official reports. HISTORY OF THE PRESENT ILLNESS: 45-y-old male patient with Hx of chronic periodic symptoms of dizziness, light headedness, vertigo, headaches for about 2 years, but he has recurrent similar symptoms this time and his symptoms are worse with vomiting, nausea and unable to mobile since 07/03/16. He also had perspiration on 07/03. His BP and glucose level also elevated. PAST MEDICAL HISTORY: Please see above. PAST SURGERY HISTORY: Pacemaker Placement, S/P CABG, Tonsillectomy, Appendectomy , Cholecystectomy, Hysterectomy, Hernia Repair, Neck, Shoulder, Knee surgery, No major surgery recently. ALLERGY: Unknown MEDICATIONS: Refer to [facility] FAMILY HISTORY: Non contributory. SOCIAL HISTORY: Lives with his and home. Denies illicit drug use. He smokes for many years. He drinks 4-5 beers several times a week or free drinking for weeks sometimes per his . REVIEW OF SYSTEMS: Constitutional: No malnutrition, weight loss, cachexia. Head: No traumatic brain or head injury. Skin: No edema, or rash. Ear: No infection, tinnitus. Eyes: No vision loss or color blindness. Nose: No bleeding or purulent discharges. Hearing: No hearing decrease. Neck: No injury. Cardiac: HTN, HLD. Pulmonary: No COPD. GI: No GI ulcer, GI bleeding. Urinary/genital: No dysuria, hematuria, incontinence, urinary retention. Endocrinologic: Diabetes Mellitus, obesity. Skeletomuscular: No muscular atrophy, deformity. Neurological: see HP. Psychiatric: Denies drug use/abuse. Otherwise, not -nadrc review of systems. PHYSICAL EXAMINATION: General appearance is in acute distress. HEENT: Normocephalic and nontraumatic. Eyes, nose, ears, and throat are unremarkable. Neck is supple. No lymphadenopathy. No crepitus. Cardiovascular: S1, S2, regular rate and rhythm. Pulmonary: Clear to auscultation bilaterally. Abdomen: Bowel sounds are positive. . Extremities: No rash, lesions, or edema. No restriction of range of motion NEUROLOGICAL EXAMINATION: Alert Oriented to time, place and person. PERRL. EOMI. CN: no focal findings. Muscle tone: within normal. Muscle strength: 5 DTR: 2 Plantar reflex: Flexor response bilaterally Gait: not examined in bed. Sensory exam: no abnormal findings. No obvious cerebellar signs elicited. F-T-N test not performed. Objective Objective Vital Signs Date Time Temp Pulse Resp B/P Pulse Ox O2 Delivery O2 Flow Rate FiO2 07/05/16 11:41 97.6 96 19 128/82 96 Room Air 97.6 Intake and Output 07/05/16 07:00 Intake Total 2240 ml Output Total 406 ml Balance 1834 ml Intake Oral 1240 ml IV Total 1000 ml Output Urine Total 404 ml Stool Total 2 ml # Voids 3 # Bowel Movements 1 Vitals Signs Vitals VS - Last 72 Hours, by Label Date Time Temp Pulse Resp B/P Pulse Ox O2 Delivery O2 Flow Rate FiO2 07/05/16 11:41 97.6 96 19 128/82 96 Room Air 97.6 07/05/16 09:29 98 Room Air 07/05/16 08:35 98 Room Air 07/05/16 08:19 108 149/85 07/05/16 08:00 Room Air 07/05/16 07:42 97.7 96 19 166/94 98 Room Air 97.7 07/05/16 06:15 20 96 07/05/16 05:20 149/85 07/05/16 01:11 18 07/05/16 00:41 18 96 Room Air 07/04/16 23:00 98.4 108 19 124/58 97 Room Air 98.4 07/04/16 20:00 Room Air 07/04/16 19:00 97.9 101 21 139/74 97 Room Air 97.9 07/04/16 18:00 97 Room Air 07/04/16 10:57 98.1 88 16 140/73 97 Room Air 98.1 07/04/16 09:41 86 142/94 07/04/16 08:00 Room Air 07/04/16 07:15 98.6 86 20 142/94 96 Room Air 98.6 Laboratory Laboratory Laboratory Tests Test 07/04/16 17:50 07/04/16 18:10 07/04/16 20:43 07/05/16 05:50 Glucose (Fingerstick) 258mg/dL (70-99) 244mg/dL (70-99) Troponin I Quantitative < 0.017ng/mL (0.000-0.055) White Blood Count 10.0x10^3/uL (4.0-11.0) Red Blood Count 4.49x10^6/uL (4.30-5.70) Hemoglobin 13.0g/dL (13.0-17.5) Hematocrit 38.6% (39.0-53.0) Mean Corpuscular Volume 86fL (79-100) Mean Corpuscular Hemoglobin 29pg (25-35) Mean Corpuscular Hemoglobin Concent 34g/dL (31-37) Red Cell Distribution Width 13.9% (11.5-14.5) Platelet Count 283x10^3/uL (140-400) Neutrophils (%) (Auto) 74% (31-73) Lymphocytes (%) (Auto) 18% (24-48) Monocytes (%) (Auto) 8% (0-9) Eosinophils (%) (Auto) 0% (0-3) Basophils (%) (Auto) 0% (0-3) Neutrophils # (Auto) 7.4x10^3uL (1.8-7.7) Lymphocytes # (Auto) 1.8x10^3/uL (1.0-4.8) Monocytes # (Auto) 0.8x10^3/uL (0.0-1.1) Eosinophils # (Auto) 0.0x10^3/uL (0.0-0.7) Basophils # (Auto) 0.0x10^3/uL (0.0-0.2) Test 07/05/16 06:00 07/05/16 07:53 07/05/16 12:43 Sodium Level 141mmol/L (136-145) Potassium Level 3.4mmol/L (3.5-5.1) Chloride Level 105mmol/L (98-107) Carbon Dioxide Level 27mmol/L (21-32) Anion Gap 9 (6-14) Blood Urea Nitrogen 11mg/dL (8-26) Creatinine 0.6mg/dL (0.7-1.3) Estimated GFR (Cockcroft-Gault) 145.7 Glucose Level 228mg/dL (70-99) Calcium Level 8.8mg/dL (8.5-10.1) Triglycerides Level 265mg/dL (0-150) Cholesterol Level 166mg/dL (0-200) LDL Cholesterol, Calculated 67mg/dL (0-100) VLDL Cholesterol, Calculated 53mg/dL (0-40) HDL Cholesterol 46mg/dL (40-60) Cholesterol/HDL Ratio 3.6 Glucose (Fingerstick) 250mg/dL (70-99) 218mg/dL (70-99) Medication Medications Current Medications Acetaminophen/ Hydrocodone Bitart (Lortab 10/325) 1 tab PRN Q6HRS PRN PO PAIN; Start 07/05/16 at 12:50 Acetaminophen/ Hydrocodone Bitart (Lortab 10/325) 1 tab PRN Q8HRS PRN PO PAIN Last administered on 07/05/16 09:29; Start 07/05/16 at 09:00; Stop 07/05/16 at 12:53; Status DC Aspirin ([employer] Aspirin) 325 mg DAILYWBKFT PO Last administered on 07/05/16 08: 19; Start 07/04/16 at 17:00 Atorvastatin Calcium (Lipitor) 10 mg QHS PO ; Start 07/05/16 at 21:00 Diazepam (Valium) 5 mg PRN Q6HRS PRN PO ANXIETY Last administered on 07/05/16 13:24; Start 07/05/16 at 12:50 Fentanyl Citrate (Fentanyl 2ml Vial) 50 mcg PRN Q6HRS PRN IV PAIN Last administered on 07/05/16 06:15; Start 07/04/16 at 17:45; Stop 07/05/16 at 08:55 ; Status DC Glimepiride (Amaryl) 4 mg DAILY PO Last administered on 07/05/16 08:18; Start 07/05/16 at 09:00 Insulin Detemir (Levemir) 15 units BIDAC SQ Last administered on 07/05/16 08: 30; Start 07/05/16 at 08:30; Stop 07/05/16 at 08:56; Status DC Insulin Detemir (Levemir) 20 units BIDAC SQ Last administered on 07/05/16 09: 36; Start 07/05/16 at 09:30 Lorazepam (Ativan) 1.5 mg PRN Q6HRS PRN IV ANXIETY / AGITATION Last administered on 07/04/16 17:58; Start 07/04/16 at 17:45; Stop 07/05/16 at 08:55 ; Status DC Metformin HCl (Glucophage) 1,000 mg BIDWMEALS PO Last administered on 08:23; Start 07/05/16 at 08:00 Comment Review of Relevant I have reviewed the following items maxwell (where applicable) has been applied. PAUL READ MD Jul 05, 2016 15:41
[2016-07-05] MEDS: MECLIZINE HCL 12.5 MG TABLET. PO PRN (18:17)
[2016-07-05] MEDS: ONDANSETRON PF 4 MG/2 ML VIAL. IV PRN (18:18)
[2016-07-05] MEDS ORDERED: ASA/APAP/CAFFEINE 250/250/65MG TABLET. PO PRN (18:30)
[2016-07-05] MEDS ORDERED: ATORVASTATIN CALCIUM 10 MG TABLET. PO SCH ×2 (21:00)
--- NOTE | 2016-07-06 01:40 | CONS ---
DATE OF CONSULTATION: 07/05/2016 ATTENDING PHYSICIAN: Dr. Jagdish Segura. The patient was seen at the request of Dr. Segura for rehab evaluation. PATIENT'S ROOM: 668. 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 He was admitted to the Emergency Room on 07/04/2016 with dizziness and nausea and headache. CT scan of the brain done in the Emergency Room was within normal limits. He also had other radiological studies including carotid Doppler studies which failed to reveal any significant stenotic disease. Ultrasound of the abdomen revealed probable gallbladder polyp, hepatomegaly, acute abdomen, failed to reveal any acute abnormalities. MRI scan of the brain revealed small acute infarct involving right cerebellar hemisphere inferiorly. No evidence of hemorrhagic transformation, minimal probable small vessel ischemic disease was also noted. Carotid Doppler studies failed to reveal any significant stenotic disease. The patient admits that he is feeling less dizziness, but still having headache. He denies any neck pain. He denies any trouble with his speech or swallowing or bowel or bladder control or mentation. The patient lives with his and 13-year-old daughter in a [place], [place] home, had a flight of stairs to manage with railing in place and [place] and his actually is packing, taking off for the last 2 weeks. The patient is not known allergic to any medication. He is worried about when he can return to his work. PHYSICAL EXAMINATION: Today revealed young male patient, he is alert, oriented to time, place, person and circumstance and follows commands appropriately, moves all 4 extremities voluntarily where he had 4+/5 to 5/5 grade muscle strength and deep tendon reflexes are decreased overall with absent knee and ankle jerks and he had equal perception of touch and pinprick sensation bilaterally. The patient had no obvious visual field cut or facial asymmetry. He had good coordination using both upper extremities. The patient had no orthostatic hypotension when he got up. He is having some difficulty with balance. He walked using a roller walker under supervision, but he felt like he has to lean to the left side, but I did not see any loss of balance while he is walking with a roller walker, but he had significant difficulty walking without the walker. His skin is intact at this time. Plantar reflex is equivocal bilaterally. ASSESSMENT: Young male with recent onset right cerebellar infarct with ataxia, dizziness and headaches in a patient with known hypertension and diabetes mellitus with clinical evidence of peripheral neuropathy. RECOMMENDATIONS: Agree with the plan for physical therapy and occupational therapy and to see how he does in the next few days. If is able to get around and take care of himself including climbing the stairs, using a cane or a walker, to let him go home with outpatient followup. To also consider transfer to inpatient rehabilitation unit if he continues to have significant ataxia interfering with his mobility and self-care. Dr. Segura, I appreciate asking me to participate in the care of this interesting patient. I will be glad to follow him with you as needed for the rehabilitation. LEXIE DAVIS MD DR: THOMAS/teresa JOB#: [id number] / [id number]
[2016-07-06 03:00] VITALS: BP 123/85
[2016-07-06 07:45] VITALS: BP 143/96
[2016-07-06] MEDS: METFORMIN 1,000 MG TABLET PO SCH (08:17)
[2016-07-06] MEDS: ASPIRIN 325 MG TABLET PO SCH (08:17)
[2016-07-06] MEDS: GLIMEPIRIDE 2 MG TABLET PO SCH (08:17)
[2016-07-06] MEDS: LISINOPRIL 10 MG TABLET PO SCH (08:18)
[2016-07-06] MEDS: HYDROCODONE/APAP 10/325 TABLET. PO PRN (08:20)
[2016-07-06] MEDS: INSULIN DETEMIR 300 UNITS/3 ML INSULN.PEN. SQ SCH (08:26)
[2016-07-06] MEDS: INSULIN ASPART 300 UNITS/3 ML INSULN.PEN SQ SCH ×2 (08:26→12:21)
--- NOTE | 2016-07-06 08:30 | PDOC2 ---
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 Judd SOURCE Source: Chart review, Patient HISTORY OF PRESENT ILLNESS HISTORY OF PRESENT ILLNESS This is a 45 yo male, with a h/o HTN, HLP, and DM, who presented with complaints of dizziness along with nausea and vomiting. Patient report she woke up Friday night with severe dizziness and was unable to walk. He then woke up who drove him the the emergency room. Oh the way here, patient developed nausea with vomiting. Dizziness also persisted. Associated with STEWART and mild SOA. Feels that the dyspnea was related to anxiety 2/2 persistent nausea as it resolved once he calmed down. Denies any chest pain, palpitations, diaphoresis, or orthopnea. No recent fevers or illness. Patient reports he ran out of medications approximately 4-5 months and did not have refilled. Was able to have PCP refill two days prior to arrival. Denies any previous cardiac workup. Initial CT negative for acute changes but MRI of brain identified small acute infarcts involving the right cerebellar hemisphere. Infarcts felt to be embolic in nature, which prompted this consult. PAST MEDICAL HISTORY Cardiovascular: HTN, Hyperlipidemia Pulmonary: No pertinent hx CENTRAL NERVOUS SYSTEM: Other (no pertinent hx ) GI: No pertinent hx Heme/Onc: No pertinent hx Hepatobiliary: No pertinent hx Psych: No pertinent hx Rheumatologic: No pertinent hx Infectious disease: No pertinent hx ENT: No pertinent hx Renal/: No pertinent hx Endocrine: Diabetes Dermatology: No pertinent hx PAST SURGICAL HISTORY Past Surgical History: Other (right rotator cuff sx) FAMILY HISTORY Family History: Stroke (mother ) SOCIAL HISTORY Smoke: <1 pack per day ALCOHOL: occassional Drugs: None Lives: with Family CURRENT MEDICATIONS CURRENT MEDICATIONS Current Medications Medications (Trade) Dose Ordered Sig/Alondra Route PRN Reason Start Time Stop Time Status Last Admin Dose Admin Glimepiride (Amaryl) 4 mg DAILY PO 07/05/16 09:00 07/05/16 08:18 Insulin Detemir (Levemir) 15 units BIDAC SQ 07/05/16 08:30 07/05/16 08:56 DC 07/05/16 08:30 Acetaminophen/ Hydrocodone Bitart (Lortab 10/325) 1 tab PRN Q8HRS PRN PO PAIN 07/05/16 09:00 07/05/16 12:53 DC 07/05/16 09:29 Insulin Detemir (Levemir) 20 units BIDAC SQ 07/05/16 09:30 07/05/16 16:30 Diazepam (Valium) 5 mg PRN Q6HRS PRN PO ANXIETY 07/05/16 12:50 07/05/16 21:36 Acetaminophen/ Hydrocodone Bitart (Lortab 10/325) 1 tab PRN Q6HRS PRN PO PAIN 07/05/16 12:50 07/05/16 21:36 Atorvastatin Calcium (Lipitor) 20 mg QHS PO 07/05/16 21:00 07/05/16 21:33 Acetaminophen/ Aspirin/Caffeine (Excedrin Migraine) 2 tab PRN QID PRN PO MIGRAINE HEADACHE 07/05/16 18:30 07/06/16 04:23 ALLERGIES ALLERGIES: Coded Allergies: No Known Drug Allergies (Unverified , 07/04/16) ROS Review of System 14 point ROS conducted with pertinent positives noted above in HPI. PHYSICAL EXAM General: Alert, Oriented X3, Cooperative, No acute distress HEENT: Atraumatic, Mucous membr. moist/pink Lungs: Clear to auscultation, Normal air movement Heart: Regular rate, Normal S1, Normal S2, No murmurs Abdomen: Soft, No tenderness Extremities: No edema, Normal pulses Skin: No breakdown, No significant lesion Neuro: Normal speech, Strength at 5/5 X4 ext, Normal tone, Sensation intact Psych/Mental Status: Mental status NL, Mood NL MUSCULOSKELETAL: Full range of motion without pain VITALS VITALS Vital Signs Date Time Temp Pulse Resp B/P Pulse Ox O2 Delivery O2 Flow Rate FiO2 07/06/16 03:00 98.5 81 16 123/85 95 Room Air 98.5 LABS Lab: Laboratory Tests Test 07/05/16 12:43 07/05/16 17:31 07/05/16 20:37 07/06/16 08:10 Glucose (Fingerstick) 218mg/dL (70-99) 228mg/dL (70-99) 244mg/dL (70-99) 168mg/dL (70-99) ECHOCARDIOGRAM ECHOCARDIOGRAM <Conclusion> The left ventricular systolic function is normal. The Ejection Fraction is 55-60%. There is normal LV segmental wall motion. The left atrium is mildly dilated. Doppler and Color Flow revealed trace tricuspid regurgitation. There is mild pulmonary hypertension. The PA pressure was estimated at 31 mmHg. There is no evidence of significant pericardial effusion. Injection of bubbles documented no interatrial shunt. DATE: 07/05/16 1444 ASSESSMENT/PLAN ASSESSMENT/PLAN 1. 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 If unrevealing, consider loop recorder implantation will have patient f/u in our office with Dr. Ocampo in 2 weeks and plan for outpatient LOULOU anticoagulation therapy per neurology. 2. Accelerated hypertension now well-controlled continue current therapy 3. Hyperlipidemia LDL= 67 statin therapy 4. Diabetes uncontrolled. per PCP 5. Noncompliance Discussed importance of medications compliance Problems: REUBEN OCAMPO MD 07/06/16 1153: CARDIAC CONSULT ALLERGIES ALLERGIES: Coded Allergies: No Known Drug Allergies (Unverified , 07/04/16) ASSESSMENT/PLAN ASSESSMENT/PLAN Patient seen and examined. Agree with WEIGHT TESTER's assessment and plan. Patient with embolic right cerebellar infarct of uncertain source. 2-D echo showed normal LV function without any significant structural abnormalities. Bubble study was negative for PFO/ASD. Telemetry did not show any significant arrhythmias so far. We will plan for outpatient LOULOU to definitively rule out intracardiac shunt and event monitor to rule out atrial fibrillation as an etiology. Blood pressure better controlled since admission. Continue current medical regimen. Follow-up with our office in 2 weeks. Thank you for your consultation. Problems: HARISH ARCE APRN Jul 06, 2016 08:30 REUBEN OCAMPO MD Jul 06, 2016 11:53
[2016-07-06 10:59] VITALS: BP 154/84
[2016-07-06] MEDS ORDERED: ATOR10TA60 PO (13:08)
[2016-07-06] MEDS ORDERED: INSU100I27 SQ (13:08)
[2016-07-06] MEDS ORDERED: ASPI325T4 PO (13:08)
--- NOTE | 2016-07-06 13:33 | PDOC ---
SUBJECTIVE Subjective feeels much better, no new complaints BS better OBJECTIVE Vital Signs Vital Signs Date Time Temp Pulse Resp B/P Pulse Ox O2 Delivery O2 Flow Rate FiO2 07/06/16 10:59 98.8 83 18 154/84 96 Room Air 98.8 07/06/16 09:38 18 95 Room Air 07/06/16 08:20 18 95 Room Air 07/06/16 08:18 81 123/85 07/06/16 07:45 99.0 84 18 143/96 96 Room Air 99.0 07/06/16 03:00 98.5 81 16 123/85 95 Room Air 98.5 07/05/16 23:00 98.3 90 16 119/75 95 Room Air 98.3 07/05/16 21:36 Room Air 07/05/16 20:00 Room Air 07/05/16 19:00 98.6 89 16 151/95 97 Room Air 98.6 07/05/16 17:37 154/92 97 07/05/16 15:35 96 Room Air 07/05/16 15:00 97.9 88 18 151/76 94 Room Air 97.9 I & O Intake and Output 07/06/16 07:00 Intake Total 750 ml Balance 750 ml Intake Oral 750 ml # Voids 7 PHYSICAL EXAM Physical Exam lungs clear Heart RRR abd soft ext no edema ASSESSMENT/PLAN Assessment/Plan 1-Acute/subacute right cerebellar infarcts. 2-HTN, increase lisinopril dose 3-HLD 4- DM, better with insulin 5- quit Smoking years ago 6-fattyu liver advised no ETOH 7-Obesity 8-mild pulmonary HTN 9- dilated left atrium and mild valvular disease anxious to go home , long discussion on taking meds and preventing another stroke hpme today , continue physical Tx Problems: COMMENT Lab Laboratory Tests Test 07/05/16 17:31 07/05/16 20:37 07/06/16 08:10 07/06/16 11:34 Glucose (Fingerstick) 228mg/dL (70-99) 244mg/dL (70-99) 168mg/dL (70-99) 196mg/dL (70-99) AUSTIN DEVI MD Jul 06, 2016 13:33
--- NOTE | 2016-07-06 13:37 | PDOC3 ---
Discharge Summary* Date of Admission: Jul 04, 2016 Date of Discharge: Jul 06, 2016 Admitting Diagnosis Problems Medical Problems: (1) CVA (cerebral vascular accident) Status: Acute (2) Dizziness Status: Acute (3) Hyperglycemia due to type 2 diabetes mellitus Status: Acute (4) Nausea and vomiting Status: Acute Final Diagnosis 1-Acute/subacute right cerebellar infarcts. 2-HTN, increase lisinopril dose 3-HLD 4- DM, better with insulin 5- quit Smoking years ago 6-fattyu liver advised no ETOH 7-Obesity 8-mild pulmonary HTN 9- dilated left atrium and mild valvular disease anxious to go home , long discussion on taking meds and preventing another stroke Problems Medical Problems: (1) CVA (cerebral vascular accident) Status: Acute (2) Dizziness Status: Acute (3) Hyperglycemia due to type 2 diabetes mellitus Status: Acute (4) Nausea and vomiting Status: Acute CONSULTS Neurology Dr. Judd C.V Dr. Vergara Procedures CT head MRI brain acute abd Abd US carotid doppler echocardiogram Brief Hospital Course Mr. Jain is a 45 old [sex] who presented with [ ] Disposition/Orders: D/C to Home w/ HH CONDITION AT DISCHARGE: Improved Diet: 2 gr sodium, Consistent Carbohydrate Scheduled Aspirin (Aspirin) 325 MG PO DAILYWBKFT Atorvastatin Calcium (Atorvastatin Calcium) 20 MG PO QHS Glimepiride (Glimepiride) 1 TAB PO DAILY (Reported) Insulin Detemir (Levemir Flextouch) 20 UNITS SQ BIDAC Lisinopril/Hydrochlorothiazide (Zestoretic 20-12.5 Mg Tablet) 1 TAB PO DAILY ( Reported) Metformin Hcl (Metformin Hcl) 1 TAB PO BID (Reported) Multivitamin (Multi Vitamin Daily) 1 EACH PO DAILY (Reported) [place]-3 Fatty Acids (Fish Oil) 500 MG PO DAILY (Reported) Simvastatin (Simvastatin) 20 MG PO DAILY (Reported) Scheduled PRN Hydrocodone Bit/Acetaminophen (Hydrocodone-Apap 10-325 ) 1 TAB PO TID PRN PRN PAIN (Reported) FOLLOW UP APPOINTMENT: Dr. Segura [address] Vergara for LOULOU in 2-3 weeks avoid ETOH take me Time Spent Total time spent with patient [] minutes for coordination of care, counseling, and education. AUSTIN DEVI MD Jul 06, 2016 13:37
--- NOTE | 2016-07-06 14:54 | PDOC ---
PROGRESS NOTES Subjective Subjective He feels better. Objective Objective Vital Signs Date Time Temp Pulse Resp B/P Pulse Ox O2 Delivery O2 Flow Rate FiO2 07/06/16 10:59 98.8 83 18 154/84 96 Room Air 98.8 Intake and Output 07/06/16 07:00 Intake Total 750 ml Balance 750 ml Intake Oral 750 ml # Voids 7 Physical Exam Physical Exam He is independent with bed moility,transfers and walking with roller walker. Assessment Assessment Problems Medical Problems: (1) CVA (cerebral vascular accident) Status: Acute (2) Dizziness Status: Acute (3) Hyperglycemia due to type 2 diabetes mellitus Status: Acute (4) Nausea and vomiting Status: Acute Plan Plan of Care I have arranged for him to attend to out patient physical therapy. Comment Review of Relevant I have reviewed the following items maxwell (where applicable) has been applied. Labs Laboratory Tests Test 07/04/16 17:50 07/04/16 18:10 07/04/16 20:43 07/05/16 05:50 Glucose (Fingerstick) 258mg/dL (70-99) 244mg/dL (70-99) Troponin I Quantitative < 0.017ng/mL (0.000-0.055) White Blood Count 10.0x10^3/uL (4.0-11.0) Red Blood Count 4.49x10^6/uL (4.30-5.70) Hemoglobin 13.0g/dL (13.0-17.5) Hematocrit 38.6% (39.0-53.0) Mean Corpuscular Volume 86fL (79-100) Mean Corpuscular Hemoglobin 29pg (25-35) Mean Corpuscular Hemoglobin Concent 34g/dL (31-37) Red Cell Distribution Width 13.9% (11.5-14.5) Platelet Count 283x10^3/uL (140-400) Neutrophils (%) (Auto) 74% (31-73) Lymphocytes (%) (Auto) 18% (24-48) Monocytes (%) (Auto) 8% (0-9) Eosinophils (%) (Auto) 0% (0-3) Basophils (%) (Auto) 0% (0-3) Neutrophils # (Auto) 7.4x10^3uL (1.8-7.7) Lymphocytes # (Auto) 1.8x10^3/uL (1.0-4.8) Monocytes # (Auto) 0.8x10^3/uL (0.0-1.1) Eosinophils # (Auto) 0.0x10^3/uL (0.0-0.7) Basophils # (Auto) 0.0x10^3/uL (0.0-0.2) Test 07/05/16 06:00 07/05/16 07:53 07/05/16 12:43 07/05/16 17:31 Sodium Level 141mmol/L (136-145) Potassium Level 3.4mmol/L (3.5-5.1) Chloride Level 105mmol/L (98-107) Carbon Dioxide Level 27mmol/L (21-32) Anion Gap 9 (6-14) Blood Urea Nitrogen 11mg/dL (8-26) Creatinine 0.6mg/dL (0.7-1.3) Estimated GFR (Cockcroft-Gault) 145.7 Glucose Level 228mg/dL (70-99) Calcium Level 8.8mg/dL (8.5-10.1) Triglycerides Level 265mg/dL (0-150) Cholesterol Level 166mg/dL (0-200) LDL Cholesterol, Calculated 67mg/dL (0-100) VLDL Cholesterol, Calculated 53mg/dL (0-40) HDL Cholesterol 46mg/dL (40-60) Cholesterol/HDL Ratio 3.6 Glucose (Fingerstick) 250mg/dL (70-99) 218mg/dL (70-99) 228mg/dL (70-99) Test 07/05/16 20:37 07/06/16 08:10 07/06/16 11:34 Glucose (Fingerstick) 244mg/dL (70-99) 168mg/dL (70-99) 196mg/dL (70-99) Laboratory Tests Test 07/05/16 17:31 07/05/16 20:37 07/06/16 08:10 07/06/16 11:34 Glucose (Fingerstick) 228mg/dL (70-99) 244mg/dL (70-99) 168mg/dL (70-99) 196mg/dL (70-99) Medications Current Medications Ondansetron HCl (Zofran) 4 mg STK-MED ONCE .ROUTE ; Start 07/04/16 at 01:07; Stop 07/04/16 at 01:08; Status DC Ondansetron HCl 4 mg 4 mg 1X ONCE IV Last administered on 07/04/16 01:30; Start 07/04/16 at 01:30; Stop 07/04/16 at 01:31; Status DC Sodium Chloride (Iv Sodium Chloride 0.9% 1000ml Bag) 1,000 ml @ 1,000 mls/hr 1X ONCE IV Last administered on 07/04/16 01:30; Start 07/04/16 at 01:30; Stop 07/04/16 at 02:29; Status DC Diazepam (Valium) 5 mg 1X ONCE IV Last administered on 07/04/16 03:18; Start 07/04/16 at 03:15; Stop 07/04/16 at 03:16; Status DC Ondansetron HCl (Zofran) 4 mg 1X ONCE IV Last administered on 07/04/16 03:37 ; Start 07/04/16 at 03:45; Stop 07/04/16 at 03:46; Status DC Ondansetron HCl 4 mg 4 mg PRN Q8HRS PRN IV NAUSEA/VOMITING Last administered on 07/04/16 08:11; Start 07/04/16 at 04:15; Stop 07/04/16 at 12:45; Status DC Sodium Chloride (Iv Sodium Chloride 0.9% 1000ml Bag) 1,000 ml @ 125 mls/hr Q8H IV Last administered on 07/04/16 23:50; Start 07/04/16 at 04:15; Stop at 04:14; Status DC Acetaminophen (Tylenol) 650 mg PRN Q4HRS PRN PO FEVER Last administered on 07/04 20:59; Start 07/04/16 at 04:15; Stop 07/05/16 at 04:14; Status DC Insulin Aspart (Novolog) 0-5 UNITS TIDWMEALS SQ Last administered on 07/06/16 12:21; Start 07/04/16 at 08:00; Stop 07/06/16 at 14:00; Status DC Dextrose 12.5 gm PRN Q15MIN PRN IV SEE COMMENTS; Start 07/04/16 at 04:15; Stop 07/06/16 at 14:00; Status DC Metformin HCl (Glucophage) 500 mg BID PO ; Start 07/04/16 at 09:30; Status Cancel Glimepiride (Amaryl) 4 mg DAILY PO Last administered on 07/06/16 08:17; Start 07/05/16 at 09:00; Stop 07/06/16 at 14:00; Status DC Metformin HCl (Glucophage) 500 mg BIDWMEALS PO Last administered on 07/04/16 18:01; Start 07/04/16 at 09:15; Stop 07/05/16 at 07:49; Status DC Lisinopril (Prinivil) 10 mg DAILY PO Last administered on 07/06/16 08:18; Start 07/04/16 at 09:30; Stop 07/06/16 at 13:04; Status DC Meclizine HCl (Antivert) 25 mg PRN Q6HRS PRN PO DIZZINESS Last administered on 07/05/16 18:17; Start 07/04/16 at 09:15; Stop 07/06/16 at 14:00; Status DC Diazepam (Valium) 5 mg PRN Q8HRS PRN PO ANXIETY Last administered on 07/05/16 05:36; Start 07/04/16 at 09:15; Stop 07/05/16 at 12:53; Status DC Aspirin (Children'S Aspirin) 81 mg DAILYWBKFT PO Last administered on 12:00; Start 07/04/16 at 12:00; Stop 07/04/16 at 16:07; Status DC Prochlorperazine Maleate (Compazine) 5 mg PRN Q6HRS PRN PO NAUSEA/VOMITING ( 2nd Choice) Last administered on 07/04/16 16:31; Start 07/04/16 at 12:45; Stop 07/06/16 at 14:00; Status DC Ondansetron HCl (Zofran) 4 mg PRN Q6HRS PRN IV NAUSEA/VOMITING 1st choice Last administered on 07/05/16 18:18; Start 07/04/16 at 12:45; Stop 07/06/16 at 14:00 ; Status DC Gadobutrol (Gadavist) 9 mmol 1X ONCE IV Last administered on 07/04/16 15:29; Start 07/04/16 at 15:00; Stop 07/04/16 at 15:03; Status DC Aspirin (Noemi Aspirin) 325 mg DAILYWBKFT PO Last administered on 07/06/16 08: 17; Start 07/04/16 at 17:00; Stop 07/06/16 at 14:00; Status DC Lorazepam (Ativan) 1.5 mg PRN Q6HRS PRN IV ANXIETY / AGITATION Last administered on 07/04/16 17:58; Start 07/04/16 at 17:45; Stop 07/05/16 at 08:55 ; Status DC Fentanyl Citrate (Fentanyl 2ml Vial) 50 mcg PRN Q6HRS PRN IV PAIN Last administered on 07/05/16 06:15; Start 07/04/16 at 17:45; Stop 07/05/16 at 08:55 ; Status DC Metformin HCl (Glucophage) 1,000 mg BIDWMEALS PO Last administered on 08:17; Start 07/05/16 at 08:00; Stop 07/06/16 at 14:00; Status DC Insulin Detemir (Levemir) 15 units BIDAC SQ Last administered on 07/05/16 08: 30; Start 07/05/16 at 08:30; Stop 07/05/16 at 08:56; Status DC Acetaminophen/ Hydrocodone Bitart (Lortab 10/325) 1 tab PRN Q8HRS PRN PO PAIN Last administered on 07/05/16 09:29; Start 07/05/16 at 09:00; Stop 07/05/16 at 12:53; Status DC Insulin Detemir (Levemir) 20 units BIDAC SQ Last administered on 07/06/16 08: 26; Start 07/05/16 at 09:30; Stop 07/06/16 at 14:00; Status DC Atorvastatin Calcium (Lipitor) 10 mg QHS PO ; Start 07/05/16 at 21:00; Stop at 21:00; Status DC Diazepam (Valium) 5 mg PRN Q6HRS PRN PO ANXIETY Last administered on 07/05/16 21:36; Start 07/05/16 at 12:50; Stop 07/06/16 at 14:00; Status DC Acetaminophen/ Hydrocodone Bitart (Lortab 10/325) 1 tab PRN Q6HRS PRN PO PAIN Last administered on 07/06/16 08:20; Start 07/05/16 at 12:50; Stop 07/06/16 at 14:00; Status DC Atorvastatin Calcium (Lipitor) 20 mg QHS PO Last administered on 07/05/16 21: 33; Start 07/05/16 at 21:00; Stop 07/06/16 at 14:00; Status DC Acetaminophen/ Aspirin/Caffeine (Excedrin Migraine) 2 tab PRN QID PRN PO MIGRAINE HEADACHE Last administered on 07/06/16 04:23; Start 07/05/16 at 18:30 ; Stop 07/06/16 at 14:00; Status DC Lisinopril (Prinivil) 20 mg DAILY PO ; Start 07/07/16 at 09:00; Stop 07/07/16 at 09:00; Status DC Active Scripts Active Levemir Flextouch (Insulin Detemir) 100 Unit/1 Ml Insuln.pen 20 Units SQ BIDAC 30 Days Atorvastatin Calcium 10 Mg Tablet 20 Mg PO QHS 30 Days Aspirin 325 Mg Tablet 325 Mg PO DAILYWBKFT 30 Days Reported Glimepiride 4 Mg Tablet 1 Tab PO DAILY Zestoretic 20-12.5 Mg Tablet (Lisinopril/Hydrochlorothiazide) 1 Each Tablet 1 Tab PO DAILY Hydrocodone-Apap 10-325 (Hydrocodone Bit/Acetaminophen) 1 Each Tablet 1 Tab PO TID PRN Multi Vitamin Daily (Multivitamin) 1 Each Tablet 1 Each PO DAILY Fish Oil (Weare-3 Fatty Acids) 500 Mg Capsule 500 Mg PO DAILY Metformin Hcl 1,000 Mg Tablet 1 Tab PO BID Vitals/I & O Vital Sign - Last 24 Hours 07/05/16 07/05/16 07/05/16 07/05/16 15:00 15:35 17:37 19:00 Temp 97.9 98.6 97.9 98.6 Pulse 88 89 Resp 18 16 B/P 151/76 154/92 151/95 Pulse Ox 94 96 97 97 O2 Delivery Room Air Room Air Room Air 07/05/16 07/05/16 07/05/16 07/06/16 20:00 21:36 23:00 03:00 Temp 98.3 98.5 98.3 98.5 Pulse 90 81 Resp 16 16 B/P 119/75 123/85 Pulse Ox 95 95 O2 Delivery Room Air Room Air Room Air Room Air 07/06/16 07/06/16 07/06/16 07/06/16 07:45 08:18 08:20 09:38 Temp 99.0 99.0 Pulse 84 81 Resp 18 18 18 B/P 143/96 123/85 Pulse Ox 96 95 95 O2 Delivery Room Air Room Air Room Air 07/06/16 10:59 Temp 98.8 98.8 Pulse 83 Resp 18 B/P 154/84 Pulse Ox 96 O2 Delivery Room Air Intake and Output 07/05/16 07/05/16 07/06/16 15:00 23:00 07:00 Intake Total 600 ml 150 ml Balance 600 ml 150 ml LEXIE DAVIS MD Jul 06, 2016 14:54
[2016-07-07] MEDS ORDERED: LISINOPRIL 20 MG TABLET PO SCH (09:00)
== END 2016-07-06 13:58 | disposition home or self-care (01) | DRG 65 ==
LOC: ER 00:39 → 6 SOUTH 02:53
PROVIDERS: ADMIT Family Medicine; ATTEND Family Medicine
DX: I63.9 Cerebral infarction, unspecified (principal); I38 Endocarditis, valve unspecified; E11.42 Type 2 diabetes mellitus with diabetic polyneuropathy; E11.65 Type 2 diabetes mellitus with hyperglycemia; E66.9 Obesity, unspecified; E78.00 Pure hypercholesterolemia, unspecified; F06.4 Anxiety disorder due to known physiological condition; E78.5 Hyperlipidemia, unspecified; I10 Essential (primary) hypertension; I27.2 Other secondary pulmonary hypertension; Z79.82 Long term (current) use of aspirin; Z82.3 Family history of stroke; Z91.19 Patient's noncompliance with other medical treatment and regimen; Z95.0 Presence of cardiac pacemaker; Z95.1 Presence of aortocoronary bypass graft; Z79.4 Long term (current) use of insulin; Z68.33 Body mass index [BMI] 33.0-33.9, adult
CPT/HCPCS: 99285; C8929; 36415; 70450; 70553; 74022; 76705; 80048; 80053; 80061; 81001; 82947; 83036; 83690; 83880; 84484; 85027; 85610; 85730; 93005; 93880; 96361; 96374; 96375; 96376; A9585; G0481; J1815; J2060; J2405; J3010; J3360; J7030; J8597; Q0164

== ENCOUNTER → 2016-08-19 | Outpatient (CLI) | payer OTHER ==
[~2016-08-19] MED LIST: ASPI325T4 PO; ATOR10TA60 PO; GLIM4TAB2 PO; GLYB5TAB3 PO; HYDR-2672 PO; INSU100I27 SQ; LISI-334 PO; LISI-374 PO; LISI1TAB3 PO; METF10002 PO; MULT-245 PO; OMEG500C3 PO; SIMV20TA3 PO
--- NOTE | 2016-08-19 10:00 | RAD ---
PROCEDURE MRA head without contrast. HISTORY Stroke, dizziness TECHNIQUE 3D [id number] MR angiography was performed of the head. COMPARISON None other than MRI brain exam July 04, 2016 FINDINGS Any determination of stenosis is based on NASCET criteria. There is mild motion. Both vertebral arteries constitute basilar artery. Region of PICAs was not entirely included on this exam, segmentally visualized on the left. There is visualization of bilateral AICAs and superior cerebellar arteries. There is a linear focus of decreased flow related enhancement of the proximal to mid basilar artery, overall caliber basilar artery within normal limits. On MRI brain exam, there is suggestion of faint associated T2 hyperintense signal at a similar location. There is apparently very small left posterior communicating artery, not seen on the right. There is visualization of the petrous, cavernous, ophthalmic internal carotid arteries bilaterally. There is patent anterior communicating artery. There is visualization of the anterior, middle, posterior cerebral arteries bilaterally. IMPRESSION 1. Small linear focus of decreased flow related enhancement of the proximal to mid basilar artery possibly could be due to flow artifact although there is relative T2 hyperintense signal at this location on previous MRI brain exam, small dissection flap not excluded although no significant flow limitation or stenosis. CTA evaluation may be beneficial. Results were called to nurse Friend in office of Dr. Judd 08/19/2016 at 09:57 am. Electronically signed by: Malcolm López MD (Aug 19, 2016 09:58:17)
== END | disposition home or self-care (01) ==
LOC: MRI 07:52
PROVIDERS: ATTEND Psychiatry & Neurology Neurology
DX: I63.341 Cerebral infarction due to thrombosis of right cerebellar artery (principal)
CPT/HCPCS: 70544

== ENCOUNTER → 2016-08-21 | Outpatient (CLI) | payer OTHER ==
[~2016-08-21] MED LIST changes: +CONTRAST GIVEN MC PRN; +IOHEXOL 350 MG/ML 100ML VIAL. IV ONE
[2016-08-21 09:41] LABS: CREATININE 0.7 mg/dL (0.7-1.3)
--- NOTE | 2016-08-21 13:48 | RAD ---
Indication: Right cerebellar infarct. Technique: Axial images, maximum intensity projection reformatted images, and 3-D volume rendered imaging is provided. 75 mL of intravenous Omnipaque 350 was administered without complication. Comparison is made to an MRI brain from July 04, 2016. There is also a duplex carotid from July 04, 2016. Measurements follow NASCET methodology. One or more of the following individualized dose reduction techniques were utilized for this examination: 1. Automated exposure control 2. Adjustment of the mA and/or kV according to patient size 3. Use of iterative reconstruction technique Findings: CTA neck: There is minimal atheromatous disease in the thoracic aorta. There are coronary artery calcifications. There is a common origin of the brachiocephalic and left common carotid artery. No brachiocephalic or subclavian stenosis is apparent, minimal plaquing present. Common carotid arteries are without ostial narrowing or stenosis along their course. There is minimal soft plaque noted on the left in the distal common carotid artery and in the carotid bulb, no associated stenosis. There is minimal calcified plaquing at the right carotid bulb. No internal carotid artery stenosis is identified on either side. Right vertebral artery ostial narrowing of 40% by diameter is noted. Left vertebral artery is without narrowing. There are degenerative changes in the spine. There is dependent atelectasis and there is minimal emphysema in the lung apices. Lymph nodes along the cervical chains may be reactive. CTA head: There is no cavernous carotid stenosis or aneurysm. Anterior and middle cerebral arteries are without stenosis or aneurysm. Both vertebral arteries supply the basilar artery. Basilar artery is normal caliber as are the posterior cerebral arteries. No posterior circulation aneurysm is apparent. Superior sagittal sinus is patent. It preferentially drains to the right transverse sinus. There is mild maxillary and ethmoid mucosal thickening. Impression: 1. 40% ostial narrowing right vertebral artery. 2. Minimal soft plaque within the left common carotid artery and carotid bulb. No associated stenosis. 3. Minimal calcified plaque at the right carotid bulb, without stenosis. 4. No intracranial stenosis or aneurysm.
== END | disposition home or self-care (01) ==
LOC: CT 12:35
PROVIDERS: ATTEND Psychiatry & Neurology Neurology
DX: I63.341 Cerebral infarction due to thrombosis of right cerebellar artery (principal); I25.10 Atherosclerotic heart disease of native coronary artery without angina pectoris; J98.11 Atelectasis; J43.9 Emphysema, unspecified; M47.899 Other spondylosis, site unspecified
CPT/HCPCS: 36415; 70496; 70498; 82565; 84520; Q9967

== ENCOUNTER → 2016-10-18 | Day surgery (SDC) | payer OTHER ==
[~2016-10-18] MED LIST changes: +BENZOCAINE ONE 20% MUCOSAL SPRAY. MM; -CONTRAST GIVEN MC PRN; +HYDROmorphone 2 MG/ML VIAL IV PRN; -IOHEXOL 350 MG/ML 100ML VIAL. IV ONE; +IV RINGERS,LACTATED 1000ML 1,000 ML IV SCH; +LIDOCAINE 1% 1 ML SYRINGE. ID PRN; +LIDOCAINE 2% 100 MG/5 ML SYRINGE. ONE; +LIDOCAINE 2% TOPICAL JELLY 30GM TUBE. TP ONE; +METF-620 PO; -METF10002 PO; +MORPHINE SULFATE 2 MG/ML DISP.SYRIN. IV PRN; +ONDANSETRON PF 4 MG/2 ML VIAL. IV PRN; +PROCHLORPERAZINE 10 MG/2 ML VIAL. IV PRN; +PROPOFOL 10 MG/ML (20ML) VIAL. IV ONE; +fentaNYL PF VIAL 100 MCG/2 ML VIAL IV PRN
[2016-10-18 12:49] VITALS: BP 109/73
--- NOTE | 2016-10-18 14:34 | CARD ---
APPROVED REPORT EXAM: Two-dimensional and M-mode echocardiogram with Doppler and color Doppler. INDICATION CVA Reason For Test : CVA PROCEDURE After obtaining informed consent, patient underwent transesophageal echo in the PACU. Type of Sedation : Conscious Sedation Sedation was provided by anesthesiologist, see EMR for medications administered. Sedation was achieved with Propofol 160 mg intravenously. Transesophageal probe was inserted and advanced into esophagus by Meet Vergara MD. The LOULOU was performed without complications. Throughout the procedure, the blood pressure, pulse oximetry, cardiac rhythm, and rate were monitored . The patient tolerated the procedure without adverse effects. Recovery from conscious sedation was une ventful and vital signs were stable. LEFT VENTRICLE The left ventricle is normal size. There is mild concentric left ventricular hypertrophy. Normal left ventricular systolic function. The Ejection Fraction is 55-60%. There is normal LV segmental wall mo tion. No left ventricle thrombus noted on this study. RIGHT VENTRICLE The right ventricle is normal size. There is normal right ventricular wall thickness. The right ventr icular systolic function is normal. ATRIA The left atrium is mildly dilated. The right atrium size is normal. The interatrial septum is intact with no evidence for an atrial septal defect or patent foramen ovale as noted on 2-D or Doppler imagi ng. There is no thrombus noted in the left atrial appendage. AORTIC VALVE The aortic valve is mildly sclerotic. The aortic valve is trileaflet. Doppler and Color Flow revealed no significant aortic regurgitation. There is no significant aortic valvular stenosis. MITRAL VALVE The mitral valve leaflets are calcified. There is no evidence of mitral valve prolapse. There is no m itral valve stenosis. Doppler and Color Flow revealed no mitral valve regurgitation noted. TRICUSPID VALVE Doppler and Color Flow revealed mild tricuspid regurgitation. The pulmonary artery systolic pressure is estimated at 31 mmHg. There is mild pulmonary hypertension. PULMONIC VALVE Doppler and Color Flow revealed no pulmonic valvular regurgitation. There is no pulmonic valvular medardo nosis. GREAT VESSELS The aortic root is normal in size. The ascending aorta is normal in size. The pulmonary is not well v isualized. The IVC is normal in size and collapses >50% with inspiration. PERICARDIAL EFFUSION There is no evidence of significant pericardial effusion. Critical Notification Critical Value: No <Conclusion> Normal left ventricular systolic function. The Ejection Fraction is 55-60%. There is normal LV segmental wall motion. Doppler and Color Flow revealed mild tricuspid regurgitation. There is no evidence of significant pericardial effusion. Bubble study negative for PFO/ASD.
== END | disposition home or self-care (01) ==
LOC: SURG 10:09
PROVIDERS: ATTEND Internal Medicine Cardiovascular Disease
DX: I63.9 Cerebral infarction, unspecified (principal); I07.1 Rheumatic tricuspid insufficiency; I27.0 Primary pulmonary hypertension; E78.00 Pure hypercholesterolemia, unspecified; E11.9 Type 2 diabetes mellitus without complications; Z87.39 Personal history of other diseases of the musculoskeletal system and connective tissue; Z72.89 Other problems related to lifestyle
CPT/HCPCS: 82947; 93312; 93325; J2704

== ENCOUNTER → 2016-12-23 | Outpatient (CLI) | payer OTHER ==
[2016-10-18 12:49] VITALS: BP 109/73
[~2016-12-23] MED LIST changes: -ASPI325T4 PO; +ASPI325T8 PO; -BENZOCAINE ONE 20% MUCOSAL SPRAY. MM; -HYDR-2672 PO; +HYDR-2766 PO; -HYDROmorphone 2 MG/ML VIAL IV PRN; -IV RINGERS,LACTATED 1000ML 1,000 ML IV SCH; -LIDOCAINE 1% 1 ML SYRINGE. ID PRN; -LIDOCAINE 2% 100 MG/5 ML SYRINGE. ONE; -LIDOCAINE 2% TOPICAL JELLY 30GM TUBE. TP ONE; -MORPHINE SULFATE 2 MG/ML DISP.SYRIN. IV PRN; -ONDANSETRON PF 4 MG/2 ML VIAL. IV PRN; -PROCHLORPERAZINE 10 MG/2 ML VIAL. IV PRN; -PROPOFOL 10 MG/ML (20ML) VIAL. IV ONE; -fentaNYL PF VIAL 100 MCG/2 ML VIAL IV PRN
--- NOTE | 2016-12-27 20:30 | SLEEP ---
DATE OF STUDY: 12/23/2016 REFERRING PHYSICIAN: TANA Macdonald. The patient is 46 years old, weighs 223 pounds with a BMI of 32. The patient's Broussard score was 10. Split night study was performed at [facility]. During the night study, the patient spent 414 minutes in bed and slept for 329 minutes with a sleep efficiency of 79%. Sleep latency was 24 minutes with a REM latency of 74 minutes. Overall, sleep architecture showed increased stage I and stage II sleep, absent slow wave and normal REM sleep. During the initial diagnostic portion of the study, the patient slept for 139 minutes. During that time, there were 43 obstructive apneas, 106 hypopneas, 28 mixed and no central apneas. The patient's apnea-hypopnea index was 77 per hour with a supine index of 104 per hour and REM index of 66 per hour. Review of nocturnal oximetry study revealed a mean oxygen saturation of 96% with the lowest of 73%. An 11% of time oxygen saturation remained between 80% and 89%. EKG monitoring revealed normal sinus rhythm. Average heart rate was 79 beats per minute, no sustained arrhythmias were observed. PLMS were seen at index of 9 per hour and none caused EEG arousals. The patient met the criteria for CPAP initiation. It was started at 5 cm water and titrated up to 9 cm of water. At the final pressure, the patient slept for 65 minutes. The patient had supine as well as REM sleep. AHI was reduced to 0 per hour and oxygen saturation remained above 94%. The patient used small sized nasal pillows. IMPRESSION: 1. Severe sleep apnea-hypopnea syndrome at an AHI of 77 per hour. 2. Nocturnal hypoxia secondary to obstructive sleep apnea, but resolved with CPAP. 3. Mild PLMS without any significant EEG arousals. This does not need to be treated. RECOMMENDATIONS: 1. CPAP at 9 cm water completely eliminated the patient's sleep apnea and should be used on a nightly basis. 2. Follow up in 4-6 weeks to assess compliance with CPAP and to document clinical improvement. 3. Weight loss is strongly advised. 4. Avoid AGED OR DISABLED CARER depressants. 5. Caution regarding driving until symptoms of sleep apnea resolve with the use of CPAP. 6. The patient uses small-sized nasal pillows. TRUDY KRAFT MD DR: KENNY/teresa JOB#: [id number] / [id number] NAI [place]
== END | disposition home or self-care (01) ==
LOC: SLPLAB 18:24
PROVIDERS: ATTEND Physician Assistant
DX: G47.33 Obstructive sleep apnea (adult) (pediatric) (principal)
CPT/HCPCS: 95810